=== PATIENT | female | born 1995 | race Caucasian/White ===

== ENCOUNTER 2023-04-07 15:25 | Emergency (ER) | payer BC, SELFPAY ==
[2023-04-07 15:25] VITALS: BP 111/74; PULSE 84; RESP 20; TEMP 36.9; O2SAT 100
--- NOTE | 2023-04-07 16:03 | ED.WOUNDLAC ---
HPI - Wound/Laceration General Chief Complaint: Wound/Laceration Stated Complaint: head injury Time Seen by Provider: 04/07/23 15:47 Source: patient Limitations: no limitations History of Present Illness HPI narrative: PAtient presents for a head injury, states a cutting board fell from above the fridge and it hit the top of her head with the corner of it. Admits to scant blood loss, applied pressure and came to the ED. Denies loss of consciousness. Denies any other injuries. Admits to mild discomfort at the site of the injury and otherwise denies headache. Patient denies nausea, vomiting, numbness, weakness, alcohol use. Patient has not tried anything for the discomfort. Doesn't know when her last tetanus shot was. LMP was 1.5 weeks ago. Onset (ago): minute(s) (30) Location: scalp Place: home Patient tetanus UTD: No (Unknown) Context: accidental Associated symptoms: none Related Data Allergies Allergy/AdvReac Type Severity Reaction Status Date / Time No Known Allergies Allergy Unverified 04/07/23 15:50 PMFSH Comments At time of signature, I have reviewed and agree with nursing past medical, surgical, social and family history unless otherwise noted. Please see the nursing chart for further information. There is no relevant family history pertinent to the presenting complaint. Patient admits to a PMHx of left breast benign tumor excision. Exam Narrative: GENERAL: well-developed, well-nourished, conversant, no acute distress. HEAD: Normocephalic without edema. Facial bones without deformities or tenderness. Midface stable. Small 0.75 cm linear hemostatic superficial well-approximated laceration to the vertex without foreign bodies and no palpable skull deformities. EYES: PERRL. No scleral icterus or conjunctival injection. EOM intact without nystagmus. No proptosis or enophthalmos. MOUTH: Moist mucous membranes without blood. NECK: Trachea midline, no anterior crepitus. No discolorations or edema. CV: RRR, no murmurs. BACK: Spine without bony tenderness, no step offs. MSK: No gross deformities or discolorations or lesions. No bony tenderness to extremities. Tolerates range of motion of extremities without tenderness. SKIN: Warm, dry, well perfused. NEURO: Pt is alert and oriented to person, place, and time. GCS 15. Moving all extremities. Sensation grossly intact. Stable gait. Course Vital Signs Vital signs: Vital Signs Temperature 98.5 F 04/07/23 15:25 Pulse Rate 84 04/07/23 15:25 Respiratory Rate 20 04/07/23 15:25 Blood Pressure 111/74 04/07/23 15:25 Pulse Oximetry 100 04/07/23 15:25 Oxygen Delivery Room Air 04/07/23 15:25 Temperature 98.5 F 04/07/23 15:25 Pulse Rate 84 04/07/23 15:25 Respiratory Rate 20 04/07/23 15:25 Blood Pressure 111/74 04/07/23 15:25 Pulse Oximetry 100 04/07/23 15:25 Oxygen Delivery Room Air 04/07/23 15:25 MDM - Wound/Laceration MDM Narrative Medical decision making narrative: Patient presents as noted above. Vitals stable. No acute distress. Small hemostatic laceration to the vertex is superficial and well approximated. Does not require repair. Discussed wound care. Discussed reasons to obtain advanced imaging and reasons to return to the ED including severe headache, nausea or vomiting, seizure, focal numbness or weakness, uncontrolled bleeding, or any other concerning sign or symptom. Patient ordered a 0.5 cc IM tetanus booster and tylenol PO. Patient prescribed tylenol. Patient instructed to follow up with PCP. Patient given additional printed and verbal discharge instructions and questions answered to completion. Patient demonstrated understanding and agreement with plan of care. Patient discharged in stable condition. Differential Diagnosis Differential diagnosis: Likely laceration, abrasion and other (Closed head injury) Medical Records Attestation: I reviewed the patient's medical records. Critical Care Time Critical Care Time Critic
[2023-04-07] MEDS: TETANUS,DIPHTHERIA,AC PERTUSSIS ADULT (0.5 ML) BOOSTRIX IM (16:20)
[2023-04-07] MEDS: ACETAMINOPHEN 500 MG TABLET 1000 MG PO (16:20)
== END 2023-04-07 16:31 | disposition home or self-care (01) ==
PROVIDERS: Emergency Provider Student in an Organized Health Care Education/Training Program; PCP Family Medicine
DX: S01.01XA Laceration without foreign body of scalp, initial encounter (principal); Z23 Encounter for immunization; W20.8XXA Other cause of strike by thrown, projected or falling object, initial encounter
CPT/HCPCS: 90471; 90715; 99282; A9270